=== PATIENT | female | born 1970 | race Caucasian/White ===

== ENCOUNTER 2022-03-20 13:00 | Emergency (ER) | payer SELFPAY ==
--- NOTE | 2022-03-20 15:03 | ER ---
Nurse's Notes [facility] Name: Irma Bell Age: 52 yrs Sex: Female : 1970 Arrival Date: 03/20/2022 Time: 13:01 Bed Waiting Private MD: Diagnosis: Coronavirus infection, unspecified Presentation: 03/20 13:41 Chief complaint: Fever, malaise, pain with cough, body aches, headache, sore throat, hb and SOB x 4 days. TMAX 102.3. Tolerating fluids. Home COVID test positive yesterday. Coronavirus screen: Client presents with at least one sign or symptom that may indicate coronavirus-19. Standard/surgical mask placed on the client. Provider contacted for isolation considerations. Ebola Screen: No symptoms or risks identified at this time. Initial Sepsis Screen: Does the patient meet any 2 criteria? No. Patient's initial sepsis screen is negative. Does the patient have a suspected source of infection? No. Patient's initial sepsis screen is negative. Risk Assessment: Do you want to hurt yourself or someone else? Patient reports no desire to harm self or others. Onset of symptoms was March 16, 2022. 13:41 Method Of Arrival: Ambulatory hb 13:41 Acuity: YARON 3 hb Historical: - Allergies: 13:44 Phenergan; hb - PMHx: 13:44 urinary retention - self caths; hb - PSHx: 13:44 Cholecystectomy; tubal ligation; hysterectomy; hb Vital Signs: 13:41 BP 136 / 80; Pulse 106; Resp 18; Temp 98.1; Pulse Ox 100% on R/A; Weight 53.98 kg; hb Height 5 ft. 1 in. (154.94 cm); Pain 6/10; 13:41 Body Mass Index 22.48 (53.98 kg, 154.94 cm) hb ED Course: 13:01 Patient arrived in ED. mr 13:44 Triage completed. hb 13:44 Arm band placed on. hb 14:42 Nitish Miller NP is PHCP. pm1 14:42 Shane Gonzalez MD is Attending Physician. pm1 Administered Medications: No medications were administered Outcome: 15:02 Discharge ordered by . pm1 15:09 Discharged to home ambulatory. hb 15:09 Discharge instructions given to patient, Instructed on discharge instructions, follow up and referral plans. medication usage, Demonstrated understanding of instructions, follow-up care, medications, Prescriptions given X 2. 15:09 Patient left the ED. hb Signatures: Chhaya Monahan AngelaNitish DIRECTOR SUPPLY CHAIN DIRECTOR SUPPLY CHAIN pm1 Kami Martinez, RN RN hb Corrections: (The following items were deleted from the chart) 13:47 13:44 Allergies: No Known Allergies; hb hb
--- NOTE | 2022-03-20 15:03 | EDPHYS ---
Physician Documentation [facility] Name: Irma Bell Age: 52 yrs Sex: Female : 1970 Arrival Date: 03/20/2022 Time: 13:01 Bed Waiting Private MD: Shane Cantu HPI: 03/20 15:01 This 52 yrs old Female presents to ER via Ambulatory with complaints of Covid+. pm1 15:01 The patient or guardian reports cough, with no sputum. Onset: The symptoms/episode pm1 began/occurred 4 day(s) ago. Severity of symptoms: in the emergency department the symptoms are unchanged. Modifying factors: The symptoms are alleviated by nothing, the symptoms are aggravated by nothing. Associated signs and symptoms: Pertinent positives: Body aches, cough with shortness of breath. The patient has not experienced similar symptoms in the past. The patient has not recently seen a physician. Positive COVID test yesterday. Presented to the ER for a prescription of azithromycin and Paxlovid. Historical: - Allergies: 13:44 Phenergan; hb - PMHx: 13:44 urinary retention - self caths; hb - PSHx: 13:44 Cholecystectomy; tubal ligation; hysterectomy; hb ROS: 15:01 Cardiovascular: Negative for chest pain, palpitations, and edema. pm1 15:01 Abdomen/GI: Negative for abdominal pain, nausea, vomiting, diarrhea, and constipation, Back: Negative for injury and pain, MS/Extremity: Negative for injury and deformity, Skin: Negative for injury, rash, and discoloration, Neuro: Negative for headache, weakness, numbness, tingling, and seizure. 15:01 Constitutional: Positive for body aches, fever, Negative for poor PO intake. 15:01 Respiratory: Positive for cough, shortness of breath. 15:01 All other systems are negative. Exam: 15:01 Constitutional: This is a well developed, well nourished patient who is awake, alert, pm1 and in no acute distress. Head/Face: Normocephalic, atraumatic. 15:01 Back: No spinal tenderness. No costovertebral tenderness. Full range of motion. Skin: Warm, dry with normal turgor. Normal color with no rashes, no lesions, and no evidence of cellulitis. MS/ Extremity: Pulses equal, no cyanosis. Neurovascular intact. Full, normal range of motion. 15:01 Cardiovascular: Exam negative for acute changes, Rate: normal, Rhythm: regular, Pulses: no pulse deficits are appreciated, Heart sounds: normal. 15:01 Respiratory: Exam negative for acute changes, respiratory distress, shortness of breath, Breath sounds: are clear throughout. 15:01 Neuro: Exam negative for acute changes, Orientation: is normal, Mentation: is normal, Motor: is normal, moves all fours. Vital Signs: 13:41 BP 136 / 80; Pulse 106; Resp 18; Temp 98.1; Pulse Ox 100% on R/A; Weight 53.98 kg; hb Height 5 ft. 1 in. (154.94 cm); Pain 6/10; 13:41 Body Mass Index 22.48 (53.98 kg, 154.94 cm) hb MDM: 15:01 Patient medically screened. pm1 15:01 Refusal of service: The patient/guardian displays adequate decision making capability pm1 and despite a detailed discussion of alternatives, benefits, risks, and consequences refuses: all X-rays, Patient is worried about the cost for studies since [place]. She just wants to have a prescription for azithromycin and paxlovid. 15:01 Counseling: I had a detailed discussion with the patient and/or guardian regarding: the pm1 historical points, exam findings, and any diagnostic results supporting the discharge/admit diagnosis, the need for outpatient follow up, to return to the emergency department if symptoms worsen or persist or if there are any questions or concerns that arise at home. 15:01 Data reviewed: vital signs. Data interpreted: Pulse oximetry: on room air is 100 %. pm1 Interpretation: normal. Administered Medications: No medications were administered Disposition Summary: 03/20/22 15:02 Discharge Ordered Location: Home pm1 Problem: new pm1 Symptoms: have improved pm1 Condition: Stable pm1 Diagnosis - Coronavirus infection, unspecified pm1 Followup: pm1 - With: Emergency Department - When: As needed - Reason: Worsening of condition Followup: pm1 - With: Private Physician - When: 2 - 3 days - Reason: Recheck today's complaints, Continuance of care, Re-evaluation by your physician Discharge Instructions: - Discharge Summary Sheet pm1 - COVID-19 pm1 - COVID-19 Frequently Asked Questions pm1 - 10 Things You Can Do to Manage Your COVID-19 Symptoms at Home - [facility] pm1 - COVID-19: Quarantine vs. Isolation - [facility] pm1 Forms: - Medication Reconciliation Form pm1 - Thank You Letter pm1 - Antibiotic Education pm1 - Prescription Opioid Use pm1 Prescriptions: - Paxlovid (EUA) 150 mg x 2- 100 mg Oral tablet - take 3 tablets by ORAL route 2 times per day for 5 days per package directions; pm1 1 packet; Refills: 0, Product Selection Permitted - Zithromax Z-Ayush 250 mg Oral Tablet - take 1 tablet by ORAL route as directed for 5 days Day 1 - take two (2) tablets pm1 one time. Day 2, 3, 4 , 5 take one (1) tablet once daily.; 6 tablet; Refills: 0, Product Selection Permitted Signatures: Nitish Miller, DUST BOX WORKER DUST BOX WORKER pm1 Kami Martinez RN RN Corrections: (The following items were deleted from the chart) 13:47 13:44 Allergies: No Known Allergies; hb
[2022-03-20 15:13] VITALS: BP 136/80; TEMP 98.1; O2SAT 100
== END 2022-03-20 15:09 | disposition home or self-care (01) ==
LOC: ER 13:00
DX: U07.1 COVID-19 (principal); Z88.8 Allergy status to other drugs, medicaments and biological substances
CPT/HCPCS: 99282